=== PATIENT | female | born 1995 | race Caucasian/White ===

== ENCOUNTER 2019-10-05 19:14 | Emergency (ER) | payer MEDICAID ==
[~2019-10-05] VITALS: Ht 160 cm; Wt 70.5 kg
[2019-10-05 19:53] VITALS: Ht 160 cm; Wt 70.5 kg
[2019-10-05 22:54] VITALS: BP 143/92
== END 2019-10-05 22:54 | disposition home or self-care (01) ==
LOC: ED 19:14
DX: L50.9 Urticaria, unspecified (principal); Z88.8 Allergy status to other drugs, medicaments and biological substances
CPT/HCPCS: J2930